=== PATIENT | male | born 1940 | race Caucasian/White ===

== ENCOUNTER → 2017-10-11 | Outpatient (CLI) | payer MEDICARE, BC ==
[~2017-10-11] MED LIST: ASPI325T33 PO; DIGO0.12 PO; GABA400C5 PO; PROP1CAP32 PO
--- NOTE | 2017-10-11 10:33 | RADRPT ---
EXAM DATE/TIME: 10/11/2017 10:00 [place] COMPARISON: No previous studies available for comparison. INDICATIONS : Pre op. Evaluate for pneumonia, pneumothorax, or communicable diseases. MEDICAL HISTORY : None. SURGICAL HISTORY : None. ENCOUNTER: Initial ACUITY: 1 day PAIN SCORE: 0/10 LOCATION: Bilateral chest FINDINGS: The heart is normal in size. The mediastinal contours are within normal limits. The lungs are clear. No pneumothorax is seen. There is been previous plating of multiple left-sided rib fractures. CONCLUSION: 1. Post surgical changes in the left ribs. No acute abnormality. Dawit Persaud MD on October 11, 2017 at 10:31 Board Certified Radiologist. This report was verified electronically.
[2017-10-11 12:46] LABS: AUTOMATED NEUTROPHIL # 6.9 TH/MM3 (1.8-7.7); BASOPHIL # 0.1 TH/MM3 (0-0.2); BASOPHIL % 0.6 % (0.0-2.0); EOSINOPHIL # 0.2 TH/MM3 (0-0.4); EOSINOPHIL % 1.9 % (0.0-4.0); HEMATOCRIT 49.2 % (39.0-51.0); HEMOGLOBIN 16.5 GM/DL (13.0-17.0); LYMPH % 24.7 % (9.0-44.0); LYMPHOCYTE # 2.6 TH/MM3 (1.0-4.8); MEAN CELL VOLUME 90.9 FL (80.0-100.0); MEAN CORPUSCULAR HEMOGLOBIN 30.5 PG (27.0-34.0); MEAN CORPUSCULAR HGB CONC 33.6 % (32.0-36.0); MONO % 7.2 % (0.0-8.0); MONOCYTE # 0.8 TH/MM3 (0-0.9); NEUT % 65.6 % (16.0-70.0); PLATELET COUNT 255 TH/MM3 (150-450); RED BLOOD COUNT 5.42 MIL/MM3 (4.50-5.90); RED CELL DISTRIBUTION WIDTH 15.3 % (11.6-17.2); WHITE BLOOD COUNT 10.5 TH/MM3 (4.0-11.0)
[2017-10-11 12:59] LABS: BACTERIA, URINE MANY /hpf; BILIRUBIN, URINE NEG (NEG); BLOOD, URINE TRACE (NEG); GLUCOSE,URINE NEG (NEG); KETONE, URINE NEG (NEG); MUCUS URINE FEW /lpf (OCC); NITRITE,URINE POS (NEG); PH, URINE 5.5 (5.0-8.5); URINE COLOR YELLOW (YELLW/STRAW); URINE LEUKOCYTE ESTERASE LARGE (NEG); WHITE BLOOD CELL CLUMPS FEW
[2017-10-11 13:01] LABS: PROTHROMBIN TIME - PATIENT 10.4 SEC (9.8-11.6)
[2017-10-11 13:09] LABS: ALBUMIN 3.4 GM/DL (3.4-5.0); ALT (GPT) 19 U/L (12-78); AST (GOT) 16 U/L (15-37); BICARBONATE 36.2 MEQ/L (21.0-32.0); BLOOD UREA NITROGEN 23 MG/DL (7-18); CALCIUM 9.3 MG/DL (8.5-10.1); CHLORIDE 98 MEQ/L (98-107); CREATININE 1.45 MG/DL (0.60-1.30); GLOMERULAR FILTRATION RATE 47 ML/MIN (>89); GLUCOSE,FASTING 59 MG/DL (74-99); SODIUM (NA) 138 MEQ/L (136-145)
[2017-10-11 13:11] LABS: ALKALINE PHOSPHATASE 108 U/L (45-117); TOTAL BILIRUBIN ADULT 0.4 MG/DL (0.2-1.0); TOTAL PROTEIN 8.4 GM/DL (6.4-8.2)
--- NOTE | 2017-10-11 19:39 | EKG ---
Date Performed: 10/11/2017 Time Performed: 08:53:58 PTAGE: 77 years EKG: ATRIAL FIBRILLATION WITH SLOW VENTRICULAR RESPONSE RIGHT BUNDLE BRANCH BLOCK LEFT POSTERIOR FASCICULAR BLOCK ABNORMAL ECG NO PREVIOUS TRACING DOCTOR: Sasha Maldonado Interpretating Date/Time 10/11/2017 19:38:14
== END ==
LOC: CPRE 09:05
PROVIDERS: ATTEND Colon & Rectal Surgery
DX: Z01.810 Encounter for preprocedural cardiovascular examination (principal); Z01.812 Encounter for preprocedural laboratory examination; Z01.818 Encounter for other preprocedural examination; K94.09 Other complications of colostomy; R94.31 Abnormal electrocardiogram [ECG] [EKG]; B96.20 Unspecified Escherichia coli [E. coli] as the cause of diseases classified elsewhere; Z79.01 Long term (current) use of anticoagulants
CPT/HCPCS: 36415; 71046; 80053; 81001; 85025; 85610; 85730; 87077; 87086; 87186; 93005

== ENCOUNTER 2017-10-18 11:36 | Inpatient (IN) | payer MEDICARE, BC ==
[~2017-10-18] VITALS: Ht 172.7 cm; Wt 77.0 kg
[2017-10-18] MEDS ORDERED: SODIUM CHLORID 0.9% 500 ML IV PRN (12:00)
[2017-10-18] MEDS ORDERED: CHLORHEXIDINE GLUCONATE 2 % 1 PACK (2 CLOTHS) TOPICAL PRN (12:00)
[2017-10-18] MEDS ORDERED: METOPROLOL TARTRATE 25 MG TAB PO PRN (12:00)
[2017-10-18] MEDS ORDERED: LACTATED RINGER'S 1000 ML INJ 4,000 ML IV ONE (12:00)
[2017-10-18] MEDS ORDERED: LACTATED RINGER'S 1000 ML IV PRN (12:00)
[2017-10-18] MEDS ORDERED: INSULIN HUMAN REGULAR 1,000 UNITS/10 ML VIAL SQ PRN (12:00)
[2017-10-18] MEDS ORDERED: ROCURONIUM INJ 50 MG/5 ML SYRINGE IV PUSH ONE (12:00)
[2017-10-18] MEDS ORDERED: ONDANSETRON HCL 4 MG/2 ML VIAL IV ONE (12:00)
[2017-10-18] MEDS ORDERED: PHENYLEPH/NS 1000 MCG/10 ML SYR IV ONE (12:00)
[2017-10-18] MEDS ORDERED: PHENYLEPHRINE HCL 10 MG/ML VIAL IV ONE (12:00)
[2017-10-18] MEDS ORDERED: ALVIMOPAN 12 MG CAPSULE - On Call PO SCH (12:00)
[2017-10-18] MEDS ORDERED: DEXAMETHASONE SOD PHOS 4 MG/ML VIAL IV ONE (12:00)
[2017-10-18] MEDS ORDERED: ePHEDrine/NS 25 MG/5 ML SYRINGE IV ONE (12:00)
[2017-10-18] MEDS ORDERED: PROPOFOL 200 MG/20 ML AMP IV ONE (12:00)
[2017-10-18] MEDS ORDERED: POVIDONE IODINE 5% (ANTISEPSIS KIT) 4 APPLICATIONS EACH NARE PRN (12:00)
[2017-10-18] MEDS ORDERED: NORMOSOL R INJ 1,000 ML IV ONE (12:00)
[2017-10-18] MEDS ORDERED: LIDOCAINE HCL 1% PF 5 ML SYRINGE OTHER ONE (12:00)
[2017-10-18] MEDS ORDERED: METRONIDAZOLE 500 MG/100 ML ISONTONIC SOLN IV SCH (13:00)
[2017-10-18] MEDS ORDERED: ceFAZolin 1,000 MG/NS 100 ML IV SCH ×2 (13:00)
--- NOTE | 2017-10-18 14:48 | PD.OP ---
Operative Report Date of Surgery: Oct 18, 2017 Preoperative Diagnosis: History of colon polyps with colovesical fistula Postoperative Diagnosis: Same Procedure: Cystoscopy with bilateral ureteral catheters Anesthesia: ROSALIA Surgeon: Alberto Archibald Dental Floss Packer(s): None Resident Surgeon: None Operation and Findings: 77-year-old male admitted to undergo colostomy by . Request was made for bilateral ureteral catheter placement. The patient was brought to the operating room and placed in the dorsal lithotomy position, he received preprocedure antibiotics and general endotracheal tube anesthesia was administered. He was prepped and draped in usual sterile fashion. A 22 Pakistani cystoscope was inserted in the bladder berumen cystoscopy showed some evidence of bullous edema. The left ureteral orifice was identified and a 5 Pakistani catheter was inserted in the left ureteral orifice without difficulty. This was then again repeated on the right side without difficulty. A Rubin catheter was inserted and then the catheters were attached the Rubin. He tolerated the procedure well. Alberto Archibald DO Oct 18, 2017 14:48
[2017-10-18] MEDS ORDERED: SUGAMMADEX SODIUM 200 MG/2 ML VIAL IV PUSH ONE (16:11)
[2017-10-18] MEDS ORDERED: MIDAZOLAM HCL 2 MG/2 ML VIAL ONE (16:20)
[2017-10-18] MEDS ORDERED: *morphine SULFATE 10 MG/ML PERIprocedure ONLY ONE ×2 (17:19→17:34)
[2017-10-18] MEDS ORDERED: METOPROLOL TARTRATE 5 MG/5 ML VIAL ONE (17:24)
[2017-10-18] MEDS ORDERED: MORPHINE SULFATE 30 MG/30 ML PCA IV SCH (17:30)
[2017-10-18] MEDS ORDERED: ZOLPIDEM TARTRATE 5 MG TAB PO PRN (17:30)
[2017-10-18] MEDS ORDERED: ENALAPRILAT 1.25 MG/ML VIAL IV PUSH PRN (17:30)
[2017-10-18] MEDS ORDERED: ACETAMINOPHEN/HYDROcodone 325 MG/5 MG TAB PO PRN ×2 (17:30)
[2017-10-18] MEDS ORDERED: KETOROLAC TROMETHAMINE 30 MG/ML (IVP) VIAL IVP PRN (17:30)
[2017-10-18] MEDS ORDERED: SODIUM CHLORIDE 0.9% FLUSH 10 ML FLUSH IV FLUSH PRN (17:30)
[2017-10-18] MEDS ORDERED: NALOXONE HCL 0.4 MG/ML AMP IV PUSH PRN (17:30)
[2017-10-18] MEDS ORDERED: POTASSIUM CHLOR 20 MEQ PREMIX 100 ML IV PRN (17:30)
[2017-10-18] MEDS ORDERED: Post-op Orders (for Pharmacy) XX ONE (17:30)
[2017-10-18] MEDS ORDERED: ONDANSETRON HCL 4 MG/2 ML VIAL IV PUSH PRN (17:30)
[2017-10-18] MEDS ORDERED: POTASSIUM CHLOR 40 MEQ PREMIX 100 ML IV PRN (17:30)
[2017-10-18] MEDS ORDERED: BENZOCAINE 6 MG/MENTHOL 10 MG LOZENGE BUCCAL PRN (17:30)
[2017-10-18 18:29] LABS: AUTOMATED NEUTROPHIL # 22.3 TH/MM3 (1.8-7.7); BASOPHIL # 0.1 TH/MM3 (0-0.2); BASOPHIL % 0.2 % (0.0-2.0); EOSINOPHIL % 0.2 % (0.0-4.0); HEMATOCRIT 48.3 % (39.0-51.0); HEMOGLOBIN 16.4 GM/DL (13.0-17.0); LYMPH % 9.9 % (9.0-44.0); LYMPHOCYTE # 2.6 TH/MM3 (1.0-4.8); MEAN CELL VOLUME 90.8 FL (80.0-100.0); MEAN CORPUSCULAR HEMOGLOBIN 30.8 PG (27.0-34.0); MEAN CORPUSCULAR HGB CONC 33.9 % (32.0-36.0); MEAN PLATELET VOLUME 8.3 FL (7.0-11.0); MONO % 5.2 % (0.0-8.0); MONOCYTE # 1.4 TH/MM3 (0-0.9); NEUT % 84.5 % (16.0-70.0); PLATELET COUNT 292 TH/MM3 (150-450); RED BLOOD COUNT 5.32 MIL/MM3 (4.50-5.90); RED CELL DISTRIBUTION WIDTH 14.8 % (11.6-17.2); WHITE BLOOD COUNT 26.4 TH/MM3 (4.0-11.0)
[2017-10-18 18:35] LABS: BICARBONATE 25.9 MEQ/L (21.0-32.0); CALCIUM 8.2 MG/DL (8.5-10.1); CREATININE 1.76 MG/DL (0.60-1.30)
[2017-10-18 18:52] LABS: DIGOXIN 1.5 NG/ML (0.8-2.0)
--- NOTE | 2017-10-18 19:29 | MP ---
cc: David Estrada MD DATE OF OPERATION: 10/18/2017 DATE OF PROCEDURE: 10/18/2017 PREOPERATIVE DIAGNOSIS: Colostomy with Jesus pouch. POSTOPERATIVE DIAGNOSIS: Colostomy with Jesus pouch. PROCEDURE PERFORMED: 1. Takedown colostomy. 2. Left colectomy and low anterior resection with anastomosis. 3. Diverting loop ileostomy. 4. Takedown of splenic flexure. 5. Omental flap. 6. Bilateral ureteral catheter placement, Dr. Alberto Archibald. SURGEON: David Estrada MD MANAGER LANGUAGE: Genaro Bruner MD ANESTHESIA: General endotracheal. ESTIMATED BLOOD LOSS: 400 mL. OPERATING TIME: 2 hours and 35 minutes. OPERATIVE FINDINGS: This patient had a colectomy for a colovesical fistula in [place] laparoscopically about 8 or 9 months ago. After that surgery, he had an anastomotic leak and underwent laparotomy and Jesus pouch and colostomy formation. He then developed a subcutaneous wound infection and had a wound VAC in place for about 6 weeks. He had a long postoperative recovery and said that it took about 6 months to get over the surgery. He is a very patient and wanted closure of his colostomy. At surgery, exploration of the abdominal cavity revealed mild diffuse abdominal adhesions between the loops of the small bowel, which were easily mobilized, as well as adhesions above the liver which was palpably normal as was his stomach. There was a Jesus pouch present. The inferior mesenteric and superior hemorrhoidal vessels were left intact previously, but were divided by us. A colorectal anastomosis was done above the cul-de-sac; however, because of the moderate difficulty of the dissection, a diverting loop ileostomy was done. The remainder of the abdominal exploration was within normal limits. OPERATIVE TECHNIQUE: The patient was placed on the table in the supine position, after adequate general endotracheal anesthesia. The legs were placed in the perineal lithotomy position and the abdomen and perineum were prepped and draped in the usual manner. Previously, the stoma was closed with running 3-0 Vicryl suture so there was no stool leakage after abdominal prep. After prepping and draping in the usual manner, a transverse infraumbilical skin incision was made and carried down through the subcutaneous tissue and the rectus muscles, and the peritoneal cavity was entered with the above mentioned findings. The omental adhesions that were stuck to the left colon and the colostomy were taken down and the adhesions to the abdominal wall were taken down as well. This was all done with electrocautery. The midline scar from his previous wound infection was densely adherent to the underlying omentum. This was mobilized as well. The omentum was mobilize up out of the pelvis as well and it was stuck to the mesentery of the Jesus pouch. The cecum was mobilized up out of the pelvis in order to facilitate moving the bowels out of the abdominal cavity for the surgery. Our attention was turned to the descending colon, it was mobilized until we got to the area of the colostomy and then the colostomy was taken down with a vertical elliptical incision around the colostomy site, taken down through the subcutaneous tissue and when it was detached from the rectus muscle, there was small paracolostomy hernia present laterally. Once this colostomy was taken down, the remainder of the descending colon was mobilized up and including the splenic flexure, fully mobilizing the splenic flexure and mobilizing the omentum from the transverse colon, entering the lesser sac. Once this was done, this left us with a long omental flap that was used at the end. The ascending branch of the left colic vessels were clamped, cut and ligated and the dissection was taken up to the marginal vessels in the middle colic, which were left intact. We then palpated the inferior mesenteric vein and the inferior mesenteric artery and they were doubly clamped, cut and doubly ligated with 0 Vicryl ligatures and then the mesocolon of the rectum was mobilized posteriorly and the rectum was mobilized posteriorly in the retro rectal space. This was done down to the pelvic floor and then laterally. The pelvic peritoneum was incised bilaterally. The previously placed ureteral cath facilitated identification of the ureters. The anterior cul-de-sac was not entered but the upper portion of the rectum was stuck to the posterior wall of the bladder and this was dissected free until we got to the cul-de-sac. Again, the cul-de-sac was not entered posterior to the prostate plane. A point in the upper rectum was chosen for division and the mesorectum was clamped, cut and ligated and the rectum was divided after placing a pursestring stapling device. Next, the previously mobilized colon and colostomy site was measured for length and the remainder of the descending colon mesentery was clamped, cut and ligated and then the bowel was cleared of the mesocolon. Another pursestring stapling device was used in the proximal bowel and the bowel was divided and then the anvil of the Ethicon 29 EEA instrument was placed in the proximal bowel and the pursestring was tied. Dr. Bruner then went below and placed the EEA instrument transanally which was accomplished fairly easily, although there was some fibrosis anteriorly just above the prostate from his previous abscess and dissections. Nevertheless, the distal pursestring was tied and the instrument was connected, closed and fired, creating the circular anastomosis. Dr. Bruner then did proctosigmoidoscopy examination, inspecting the anastomosis and insufflating air in the rectum and the pelvis was filled with saline solution and no air leaks were identified. The anastomosis was excellent-appearing. There was no ischemia of the anastomosis and there was no tension on the anastomosis. Because the dissection was somewhat difficulty and the blood loss was moderate, we elected to do a diverting loop ileostomy and a point in the ileum was chosen and the mesentery was cleared for about 2 cm. Next, hemostasis was maintained throughout the abdomen with electrocautery and a ligature and a drain was placed through the left lower quadrant stab wound and brought down into the pelvis, posterior to the rectal anastomosis. The abdominal cavity was irrigated thoroughly with at least 3 liters of saline solution, aspirated dry and the bowels were replaced in the abdominal cavity in an green ware caster manner. We then placed the omentum down the left colic gutter and into the pelvis over the anastomosis. A stoma site was made in the right upper quadrant in the lateral aspect of the rectus muscle and the terminal ileum was brought out through that stoma site. The distal limb of the loop ileostomy was closed with a TX30 blue staple height stapler and the ileostomy was matured with interrupted 3-0 Vicryl sutures and a 57-mm appliance was placed on the ileostomy. This was done after closing the abdominal wound. The abdominal wound was closed in layers, first closing the colostomy site, closing the posterior rectus sheath with a single stranded #1 PDS and the anterior rectus sheath with a single stranded #1 PDS. Next, the transverse incision was closed in layers using a double stranded #1 PDS for the posterior rectus sheath incorporating closure of a small umbilical hernia with this. That layer was irrigated with a liter of saline solution, aspirated dry, and then the anterior sheath was closed with a double stranded #1 PDS as well. Subcutaneous tissue was irrigated thoroughly with another 2 liters of saline solution, aspirated dry and then the skin was closed with skin nelida, closing the previous colostomy site and the wound site. Again, the ileostomy was matured as described above and dressings were applied. Sponge, needle and instruments counts were reported as correct. Estimated blood loss was 400 mL. Operating time was 2 hours and 35 minutes. The patient tolerated the procedure well and left the operating room in good condition. MD JONI Turner/AWAIS , 05:41 PM , 07:27 PM
[2017-10-18 19:40] VITALS: BP 141/82; PULSE 101; PULSE 87; RESP 13; TEMP 98; O2SAT 97
[2017-10-18 20:00] VITALS: PULSE 86
[2017-10-18] MEDS: FUROSEMIDE 20 MG/2 ML VIAL IV PUSH SCH (20:10)
[2017-10-18] MEDS: METOCLOPRAMIDE HCL 10 MG/2 ML VIAL IVS SCH (20:10)
[2017-10-18] MEDS: GABAPENTIN 400 MG CAP PO SCH (20:10)
[2017-10-18] MEDS: ceFAZolin 2 GM PREMIX 50 ML IV SCH (20:11)
[2017-10-18] MEDS: SODIUM CHLORIDE 0.9% FLUSH 10 ML FLUSH IV FLUSH SCH (20:11)
[2017-10-18] MEDS: D5-LR + KCL 20 MEQ INJ 1,000 ML IV SCH ×2 (20:12→22:13)
[2017-10-18 21:00] VITALS: PULSE 90
[2017-10-18] MEDS ORDERED: PROPAFENONE 225 MG PO SCH ×2 (21:00)
[2017-10-18] MEDS: PCA - TOTAL MG MORPHINE DELIVERED PER SHIFT SCH (21:50)
[2017-10-18 22:00] VITALS: PULSE 84
[2017-10-18] MEDS: metroNIDAZOLE 500 MG INJ 100 ML IV SCH (22:11)
[2017-10-18 23:00] VITALS: PULSE 88
[2017-10-18 23:10] VITALS: BP 136/76; PULSE 82; RESP 15; TEMP 98; O2SAT 96
[2017-10-19] VITALS (15 sets, daily range): BP systolic 129–143; BP diastolic 62–84; PULSE 69–85; RESP 14–18; TEMP 97.4–99; O2SAT 95–100
[2017-10-19] MEDS: METOCLOPRAMIDE HCL 10 MG/2 ML VIAL IVS SCH ×4 (00:47→18:32)
[2017-10-19] MEDS: D5-LR + KCL 20 MEQ INJ 1,000 ML IV SCH ×4 (03:58→21:40)
[2017-10-19] MEDS: ceFAZolin 2 GM PREMIX 50 ML IV SCH ×3 (04:00→20:35)
[2017-10-19] MEDS: PCA - TOTAL MG MORPHINE DELIVERED PER SHIFT SCH ×2 (05:03→14:00)
[2017-10-19] MEDS: metroNIDAZOLE 500 MG INJ 100 ML IV SCH ×3 (05:11→22:00)
[2017-10-19 06:06] LABS: AUTOMATED NEUTROPHIL # 19.6 TH/MM3 (1.8-7.7); BASOPHIL % 0.2 % (0.0-2.0); HEMOGLOBIN 14.8 GM/DL (13.0-17.0); LYMPH % 5.5 % (9.0-44.0); LYMPHOCYTE # 1.2 TH/MM3 (1.0-4.8); MEAN CELL VOLUME 91.6 FL (80.0-100.0); MEAN CORPUSCULAR HEMOGLOBIN 30.7 PG (27.0-34.0); MEAN CORPUSCULAR HGB CONC 33.5 % (32.0-36.0); MEAN PLATELET VOLUME 8.2 FL (7.0-11.0); MONO % 6.5 % (0.0-8.0); MONOCYTE # 1.5 TH/MM3 (0-0.9); NEUT % 87.8 % (16.0-70.0); PLATELET COUNT 232 TH/MM3 (150-450); RED BLOOD COUNT 4.81 MIL/MM3 (4.50-5.90); RED CELL DISTRIBUTION WIDTH 14.8 % (11.6-17.2); WHITE BLOOD COUNT 22.3 TH/MM3 (4.0-11.0)
[2017-10-19 06:30] LABS: BICARBONATE 27.3 MEQ/L (21.0-32.0); CALCIUM 8.2 MG/DL (8.5-10.1); CREATININE 2.61 MG/DL (0.60-1.30)
--- NOTE | 2017-10-19 07:36 | HHI.PR ---
Subjective Remarks Awake,alert,oriented. No N or V. Ileostomy working. Objective Vital Signs Date Time Temp Pulse Resp B/P (MAP) Pulse Ox O2 Delivery O2 Flow Rate FiO2 10/19/17 06:00 72 10/19/17 05:03 18 10/19/17 05:00 72 10/19/17 04:06 96 Nasal Cannula 2.00 10/19/17 04:00 70 10/19/17 03:50 97.6 82 16 139/84 (102) 95 10/19/17 03:50 95 Nasal Cannula 2.00 10/19/17 03:00 70 10/19/17 02:00 72 10/19/17 01:00 78 10/19/17 00:00 85 10/18/17 23:10 96 Nasal Cannula 2.00 10/18/17 23:10 98.0 82 15 136/76 (96) 96 10/18/17 23:00 88 10/18/17 22:00 84 10/18/17 21:50 13 10/18/17 21:00 90 10/18/17 20:16 15 10/18/17 20:00 86 10/18/17 19:45 Nasal Cannula 2.00 10/18/17 19:40 97 Nasal Cannula 3.00 10/18/17 19:40 101 10/18/17 19:40 98.0 87 13 141/82 (101) 97 10/18/17 19:15 98.2 85 16 120/65 (83) 96 Nasal Cannula 3 10/18/17 19:00 80 16 121/69 (86) 95 Nasal Cannula 3 10/18/17 18:45 79 15 118/67 (84) 95 Nasal Cannula 3 10/18/17 18:30 78 15 114/66 (82) 96 Nasal Cannula 3 10/18/17 18:15 80 15 130/65 (86) 95 Nasal Cannula 3 10/18/17 18:00 89 15 120/62 (81) 94 Nasal Cannula 3 10/18/17 17:45 95 15 118/58 (78) 94 Nasal Cannula 3 10/18/17 17:39 15 10/18/17 17:30 115 15 120/62 (81) 99 Nasal Cannula 4 10/18/17 17:24 15 10/18/17 17:15 122 15 132/60 (84) 98 Nasal Cannula 4 10/18/17 17:00 98.6 87 17 131/58 (82) 97 Nasal Cannula 4 10/18/17 12:00 98.9 87 18 157/77 (103) 96 I/O 10/18/17 10/18/17 10/18/17 10/19/17 10/19/17 10/19/17 07:00 15:00 23:00 07:00 15:00 23:00 Intake Total 4950 ml 1800 ml Output Total 860 ml 740 ml Balance 4090 ml 1060 ml Intake Oral 150 ml IV Total 750 ml 1650 ml Other 4200 ml Output Urine Total 350 ml 500 ml Stool Total 50 ml Drainage Total 110 ml 190 ml Estimated Blood Loss 400 ml Result Diagram: 10/19/17 0430 10/19/17 0430 Objective Remarks VS-S Abd: flat,soft.Stoma pink I&Os-improving Urine output Labs-Creat 2.6 Assessment and Plan Assessment and Plan Stable POD#1. Renal insufficiency post op. Non oliguric at this point Plan: consult cardiology for advice regarding D/C anticoagulation. Decrease IVs. CLD. Ambulate.Start Heparin SQ today. David Estrada MD Oct 19, 2017 07:36
[2017-10-19] MEDS: PANTOPRAZOLE SODIUM 40 MG VIAL IVP SCH (09:10)
[2017-10-19] MEDS: FUROSEMIDE 20 MG/2 ML VIAL IV PUSH SCH ×2 (09:10→20:36)
[2017-10-19] MEDS: GABAPENTIN 400 MG CAP PO SCH ×2 (09:10→20:35)
[2017-10-19] MEDS: ALVIMOPAN 12 MG CAPSULE - Post-op dosing PO SCH ×2 (09:10→20:36)
[2017-10-19] MEDS: DIGOXIN 0.125 MG TAB PO SCH (09:10)
[2017-10-19] MEDS: SODIUM CHLORIDE 0.9% FLUSH 10 ML FLUSH IV FLUSH SCH ×2 (09:11→21:00)
--- NOTE | 2017-10-19 14:09 | PD.WCN.NOT ---
Wound Consult Description: Consult for NEW OSTOMY TEACHING of right upper quadrant temporary ileostomy per Dr Estrada Communicated with: Patient Recommendation: Continue to empty pouch and change appliance as needed using cut to fit appliances. Additional Information: Patient seen on for ostomy assessment, teaching, and to answer any questions the patient may have. Ostomy Type: Ileostomy Surgeon: David Estrada MD Date of Surgery: Oct 18, 2017 Complete: Education materials (Left at bedside after showing the contents to the patient) Educated patient on: Chewing food well Emptying pouch more often than he is used to (patient had a colostomy) Changing appliance as needed Staying hydrated Using cut to fit appliances as he is used to Paying attention to Medications and the output of stoma Additional information Stoma is located on the right upper quadrant of the abdomen. Ileostomy is red, moist, moderately protruding, round, functioning with soft brown/green effluent noted in pouch that was not emptied at this time. Patient was receptive to new information given regarding medications, hydration, chewing foods, and taking care of his stoma like he was used to doing except a little more frequently. Jen Huerta [facility] Oct 19, 2017 14:09
[2017-10-19] MEDS: HEPARIN SODIUM - SQ 10,000 UNITS/ML VIAL SQ SCH (18:32)
--- NOTE | 2017-10-19 19:22 | MB ---
cc: Sravan Stringer MD DATE OF CONSULT: Bradley is a very pleasant 77-year-old gentleman with a history atrial fibrillation, previously on Coumadin. He stopped taking his Coumadin. He has an ileostomy with Dr. Estrada. He is currently postop, resting comfortably in bed, in no acute distress. He otherwise denies any fevers, chills, cough, GI or bleeding, PND, orthopnea, syncope or dizziness. He underwent insertion of bilateral ureteral catheters, descending colectomy, closure of colostomy, ileostomy on 10/18/2017. PAST MEDICAL HISTORY: As per his present illness. He had an EKG on 10/11, which showed AFib at a rate of 59 beats/minute, right bundle branch block, right axis deviation, left anterior fascicular block. MEDICATIONS: Heparin 5000 subcu q.12 hours, 12 mg b.i.d., pantoprazole 40 daily, digoxin 0.125 daily, metronidazole IV q.8 hours, cefazolin, Lasix 20 IV q.12 hours, gabapentin 400 mg b.i.d., potassium supplementation. ALLERGIES: CODEINE. PHYSICAL EXAMINATION: Blood pressure 139/73, pulse 70, temperature 97.6, respiratory rate 14, sat is 97% on 2 L. GENERAL: He is alert and oriented x 3, in no acute distress. NECK: Supple, no JVD, no bruits. CARDIOVASCULAR: S1, S2. No murmurs, rubs or gallops. LUNGS: Clear to auscultation bilaterally. ABDOMEN: Soft, nontender, nondistended with positive bowel sounds. EXTREMITIES: No extremity edema. LABORATORIES: White count 22.3, hemoglobin 14.8, hematocrit 44.0, platelet count 232. Sodium 143, potassium 4.9, chloride 106, bicarb 27.3, BUN 25, creatinine 2.61. Digoxin is 1.5. Chest x-ray, 10/11/2017, post surgical changes in the left rib. FINAL DIAGNOSES: 1. Chronic atrial fibrillation. 2. Status post colectomy, ileostomy, bilateral ureteral shunt placement. DISCUSSION: The patient's CHADS-VASc score is 2 because his age is greater than 75. Therefore, I have explained to him that I recommend Coumadin and/or novel oral anticoagulant agent. The patient refuses Coumadin. He is undecided about novel oral anticoagulant oral agent. I did explain to him that these medications cannot be reversed should there be an acute bleed, which potentially could be life threatening. IN the meantime, I think it is reasonable to put him on baby aspirin 81 mg a day. He is currently being treated with DVT prophylaxis, heparin. His rate is controlled and he is asymptomatic. MD ELGIN Sandoval/SB , 12:55 PM , 07:21 PM
[2017-10-19] MEDS ORDERED: ALVIMOPAN 12 MG CAPSULE PO SCH (21:00)
[2017-10-20] MEDS: METOCLOPRAMIDE HCL 10 MG/2 ML VIAL IVS SCH ×5 (00:10→22:46)
[2017-10-20 01:07] VITALS: BP 129/63; PULSE 18; PULSE 78; RESP 18; TEMP 96.8; O2SAT 94
[2017-10-20] MEDS: HEPARIN SODIUM - SQ 10,000 UNITS/ML VIAL SQ SCH ×2 (05:17→16:45)
[2017-10-20] MEDS: D5-LR + KCL 20 MEQ INJ 1,000 ML IV SCH ×3 (05:24→20:21)
[2017-10-20] MEDS: metroNIDAZOLE 500 MG INJ 100 ML IV SCH ×3 (05:26→22:45)
[2017-10-20] MEDS: ceFAZolin 2 GM PREMIX 50 ML IV SCH ×3 (05:26→20:20)
[2017-10-20 08:00] VITALS: BP 107/58; PULSE 82; RESP 17; TEMP 96.7; O2SAT 93
[2017-10-20] MEDS: SODIUM CHLORIDE 0.9% FLUSH 10 ML FLUSH IV FLUSH SCH ×2 (09:00→20:21)
[2017-10-20 09:01] LABS: AUTOMATED NEUTROPHIL # 10.6 TH/MM3 (1.8-7.7); BASOPHIL # 0.1 TH/MM3 (0-0.2); BASOPHIL % 0.4 % (0.0-2.0); EOSINOPHIL # 0.1 TH/MM3 (0-0.4); EOSINOPHIL % 0.9 % (0.0-4.0); HEMATOCRIT 34.8 % (39.0-51.0); HEMOGLOBIN 11.7 GM/DL (13.0-17.0); LYMPH % 11.1 % (9.0-44.0); LYMPHOCYTE # 1.4 TH/MM3 (1.0-4.8); MEAN CELL VOLUME 90.8 FL (80.0-100.0); MEAN CORPUSCULAR HEMOGLOBIN 30.5 PG (27.0-34.0); MEAN CORPUSCULAR HGB CONC 33.6 % (32.0-36.0); MEAN PLATELET VOLUME 8.1 FL (7.0-11.0); MONO % 5.5 % (0.0-8.0); MONOCYTE # 0.7 TH/MM3 (0-0.9); NEUT % 82.1 % (16.0-70.0); PLATELET COUNT 164 TH/MM3 (150-450); RED BLOOD COUNT 3.83 MIL/MM3 (4.50-5.90); RED CELL DISTRIBUTION WIDTH 15.1 % (11.6-17.2); WHITE BLOOD COUNT 12.9 TH/MM3 (4.0-11.0)
[2017-10-20] MEDS: GABAPENTIN 400 MG CAP PO SCH ×2 (09:29→20:21)
[2017-10-20] MEDS: PANTOPRAZOLE SODIUM 40 MG VIAL IVP SCH (09:30)
[2017-10-20] MEDS: FUROSEMIDE 20 MG/2 ML VIAL IV PUSH SCH ×2 (09:30→20:21)
[2017-10-20] MEDS: DIGOXIN 0.125 MG TAB PO SCH (09:31)
[2017-10-20] MEDS: ALVIMOPAN 12 MG CAPSULE - Post-op dosing PO SCH ×2 (09:31→20:21)
[2017-10-20 09:43] LABS: BICARBONATE 30.8 MEQ/L (21.0-32.0); CALCIUM 8.3 MG/DL (8.5-10.1); CREATININE 2.28 MG/DL (0.60-1.30)
[2017-10-20 12:00] VITALS: BP 120/58; PULSE 85; RESP 17; TEMP 97.1; O2SAT 93
[2017-10-20 16:00] VITALS: BP 142/69; PULSE 73; RESP 17; TEMP 96.4; O2SAT 93
--- NOTE | 2017-10-20 17:03 | PD.CARD.PN ---
Subjective Subjective Remarks alert in nad Objective Medications Current Medications Medications (Trade) Dose Ordered Sig/Felicity Route Start Time Stop Time Status Last Admin Lactated Ringer's 1,000 ml @ 30 mls/hr Q24H PRN IV 10/18/17 12:00 10/21/17 11:59 10/18/17 12:30 Sodium Chloride 500 ml @ 30 mls/hr [id number] PRN IV 10/18/17 12:00 10/21/17 11:59 (Lopressor) 25 mg DOG DAYCARE PROVIDER PRN PO 10/18/17 12:00 10/21/17 11:59 (Betadine 5% Antisepsis Kit) 1 applic DOG DAYCARE PROVIDER PRN EACH NARE 10/18/17 12:00 10/21/17 11:59 10/18/17 12:45 (Chlorhexidine 2% Cloth) 3 pack DOG DAYCARE PROVIDER PRN TOPICAL 10/18/17 12:00 10/21/17 11:59 10/18/17 12:00 (NovoLIN R INJ) See Protocol Table ... DOG DAYCARE PROVIDER PRN SQ 10/18/17 12:00 10/21/17 11:59 (Entereg) 12 mg BID PO 10/19/17 09:00 10/25/17 21:01 10/20/17 09:31 Potassium Cl/ Dextrose/Lact Ringer's 1,000 ml @ 125 mls/hr Q8H IV 10/18/17 19:00 10/20/17 05:24 (NS Flush) 2 ml UNSCH PRN IV FLUSH 10/18/17 17:30 (NS Flush) 2 ml BID IV FLUSH 10/18/17 21:00 10/19/17 21:00 Cefazolin Sodium/ Dextrose 50 ml @ 100 mls/hr Q8H IV 10/18/17 21:00 10/23/17 20:59 10/20/17 11:57 Metronidazole 100 ml @ 200 mls/hr Q8H IV 10/18/17 22:00 10/23/17 14:29 10/20/17 11:57 ([place] 5-325 Mg) 1 tab Q4H PRN PO 10/18/17 17:30 ([place] 5-325 Mg) 2 tab Q4H PRN PO 10/18/17 17:30 (Protonix Inj) 40 mg DAILY IVP 10/19/17 09:00 10/20/17 09:30 (Reglan Inj) 5 mg Q6HR IVS 10/18/17 18:00 10/20/17 16:45 (Zofran Inj) 4 mg Q6H PRN IV PUSH 10/18/17 17:30 (Vasotec Inj) 1.25 mg Q4H PRN IV PUSH 10/18/17 17:30 (Ambien) 5 mg HS PRN PO 10/18/17 17:30 (Chloraseptic Brigido) 1 lozenge UNSCH PRN BUCCAL 10/18/17 17:30 (Lasix Inj) 20 mg Q12HR IV PUSH 10/18/17 21:00 10/21/17 09:01 10/20/17 09:30 Potassium Chloride 100 ml @ 50 mls/hr UNSCH PRN IV 10/18/17 17:30 Potassium Chloride 100 ml @ 25 mls/hr UNSCH PRN IV 10/18/17 17:30 (Heparin Inj) 5,000 units Q12H SQ 10/19/17 16:15 10/20/17 16:45 (Lanoxin) 0.125 mg DAILY PO 10/19/17 09:00 10/20/17 09:31 (Neurontin) 400 mg BID PO 10/18/17 21:00 10/20/17 09:29 Patient Own Medication PT OWN MED: PROPAFEN... BID PO 10/18/17 21:00 Future Hold Vital Signs / I&O Vital Signs Date Time Temp Pulse Resp B/P (MAP) Pulse Ox O2 Delivery O2 Flow Rate FiO2 10/20/17 16:00 96.4 73 17 142/69 (93) 93 10/20/17 12:00 97.1 85 17 120/58 (78) 93 10/20/17 09:30 Nasal Cannula 2.00 10/20/17 08:00 96.7 82 17 107/58 (74) 93 10/20/17 01:07 96.8 78 18 129/63 (85) 94 10/19/17 23:00 98.7 71 14 129/62 (84) 95 10/19/17 23:00 95 Nasal Cannula 2.00 10/19/17 19:00 99.0 76 16 130/62 (84) 96 10/19/17 19:00 96 Nasal Cannula 2.00 I/O 10/19/17 10/19/17 10/19/17 10/20/17 10/20/17 10/20/17 07:00 15:00 23:00 07:00 15:00 23:00 Intake Total 1800 ml 480 ml 1000 ml Output Total 740 ml 1770 ml 1050 ml Balance 1060 ml -1290 ml -50 ml Intake Oral 150 ml 480 ml IV Total 1650 ml 1000 ml Output Urine Total 500 ml 1650 ml 1000 ml Stool Total 50 ml Drainage Total 190 ml 120 ml 50 ml Physical Exam GENERAL: SKIN: Warm and dry. HEAD: Normocephalic. EYES: No scleral icterus. No injection or drainage. NECK: Supple, trachea midline. No JVD or lymphadenopathy. CARDIOVASCULAR: Regular rate and rhythm without murmurs, gallops, or rubs. RESPIRATORY: Breath sounds equal bilaterally. No accessory muscle use. GASTROINTESTINAL: Abdomen soft, non-tender, nondistended. MUSCULOSKELETAL: No cyanosis, or edema. BACK: Nontender without obvious deformity. No CVA tenderness. Laboratory Laboratory Tests Test 10/20/17 07:27 White Blood Count 12.9 TH/MM3 Red Blood Count 3.83 MIL/MM3 Hemoglobin 11.7 GM/DL Hematocrit 34.8 % Mean Corpuscular Volume 90.8 FL Mean Corpuscular Hemoglobin 30.5 PG Mean Corpuscular Hemoglobin Concent 33.6 % Red Cell Distribution Width 15.1 % Platelet Count 164 TH/MM3 Mean Platelet Volume 8.1 FL Neutrophils (%) (Auto) 82.1 % Lymphocytes (%) (Auto) 11.1 % Monocytes (%) (Auto) 5.5 % Eosinophils (%) (Auto) 0.9 % Basophils (%) (Auto) 0.4 % Neutrophils # (Auto) 10.6 TH/MM3 Lymphocytes # (Auto) 1.4 TH/MM3 Monocytes # (Auto) 0.7 TH/MM3 Eosinophils # (Auto) 0.1 TH/MM3 Basophils # (Auto) 0.1 TH/MM3 CBC Comment DIFF FINAL Differential Comment Blood Urea Nitrogen 26 MG/DL Creatinine 2.28 MG/DL Random Glucose 99 MG/DL Calcium Level 8.3 MG/DL Sodium Level 141 MEQ/L Potassium Level 4.1 MEQ/L Chloride Level 102 MEQ/L Carbon Dioxide Level 30.8 MEQ/L Anion Gap 8 MEQ/L Estimat Glomerular Filtration Rate 28 ML/MIN Assessment and Plan Problem List: (1) Atrial fibrillation ICD Codes: I48.91 - Unspecified atrial fibrillation Assessment and Plan 1.) Atrial fibrillation - assymptomatic, rate controlled, [id number] score =2; he has agreed to take a noac, rec eliquis 2.5 mg bid if/when cleared by Dr Estrada, ow continue aspirin 81 mg qd, f/u with me in office after discharge, d/ w patient Sravan Stringer MD Oct 20, 2017 17:03
[2017-10-20 20:00] VITALS: BP 154/74; PULSE 73; RESP 18; TEMP 97.3; O2SAT 94
[2017-10-21] VITALS: BP 133/66; PULSE 85; PULSE 98; RESP 18; TEMP 97.8; O2SAT 93
[2017-10-21] MEDS: HEPARIN SODIUM - SQ 10,000 UNITS/ML VIAL SQ SCH ×2 (04:36→16:24)
[2017-10-21] MEDS: ceFAZolin 2 GM PREMIX 50 ML IV SCH ×3 (04:36→20:18)
[2017-10-21] MEDS: METOCLOPRAMIDE HCL 10 MG/2 ML VIAL IVS SCH ×4 (05:59→23:59)
[2017-10-21] MEDS: metroNIDAZOLE 500 MG INJ 100 ML IV SCH ×3 (05:59→20:18)
[2017-10-21 07:02] LABS: AUTOMATED NEUTROPHIL # 7.2 TH/MM3 (1.8-7.7); BASOPHIL % 0.4 % (0.0-2.0); EOSINOPHIL # 0.3 TH/MM3 (0-0.4); HEMATOCRIT 34.9 % (39.0-51.0); HEMOGLOBIN 12.1 GM/DL (13.0-17.0); LYMPH % 12.8 % (9.0-44.0); LYMPHOCYTE # 1.2 TH/MM3 (1.0-4.8); MEAN CELL VOLUME 90.3 FL (80.0-100.0); MEAN CORPUSCULAR HEMOGLOBIN 31.3 PG (27.0-34.0); MEAN CORPUSCULAR HGB CONC 34.7 % (32.0-36.0); MEAN PLATELET VOLUME 8.1 FL (7.0-11.0); MONO % 6.1 % (0.0-8.0); MONOCYTE # 0.6 TH/MM3 (0-0.9); NEUT % 77.7 % (16.0-70.0); PLATELET COUNT 168 TH/MM3 (150-450); RED BLOOD COUNT 3.86 MIL/MM3 (4.50-5.90); RED CELL DISTRIBUTION WIDTH 14.9 % (11.6-17.2); WHITE BLOOD COUNT 9.3 TH/MM3 (4.0-11.0)
[2017-10-21 07:24] LABS: BICARBONATE 37.7 MEQ/L (21.0-32.0); CALCIUM 8.4 MG/DL (8.5-10.1); CREATININE 1.99 MG/DL (0.60-1.30)
[2017-10-21 08:00] VITALS: BP 132/70; PULSE 85; RESP 17; TEMP 96.4; O2SAT 91
[2017-10-21] MEDS: SODIUM CHLORIDE 0.9% FLUSH 10 ML FLUSH IV FLUSH SCH ×2 (09:00→20:18)
[2017-10-21] MEDS: DIGOXIN 0.125 MG TAB PO SCH (09:13)
[2017-10-21] MEDS: FUROSEMIDE 20 MG/2 ML VIAL IV PUSH SCH (09:14)
[2017-10-21] MEDS: PANTOPRAZOLE SODIUM 40 MG VIAL IVP SCH (09:14)
[2017-10-21] MEDS: GABAPENTIN 400 MG CAP PO SCH ×2 (09:14→20:18)
[2017-10-21] MEDS: ALVIMOPAN 12 MG CAPSULE - Post-op dosing PO SCH ×2 (09:14→20:18)
[2017-10-21] MEDS: D5-LR + KCL 20 MEQ INJ 1,000 ML IV SCH (11:37)
[2017-10-21 12:00] VITALS: BP 135/71; PULSE 83; RESP 17; TEMP 97.5; O2SAT 95
--- NOTE | 2017-10-21 12:54 | PD.CARD.PN ---
Subjective Subjective Remarks alert in nad Objective Medications Current Medications Medications (Trade) Dose Ordered Sig/Felicity Route Start Time Stop Time Status Last Admin (Entereg) 12 mg BID PO 10/19/17 09:00 10/25/17 21:01 10/21/17 09:14 Potassium Cl/ Dextrose/Lact Ringer's 1,000 ml @ 83 mls/hr Q12H3M IV 10/18/17 19:00 10/20/17 20:21 (NS Flush) 2 ml UNSCH PRN IV FLUSH 10/18/17 17:30 (NS Flush) 2 ml BID IV FLUSH 10/18/17 21:00 10/20/17 20:21 Cefazolin Sodium/ Dextrose 50 ml @ 100 mls/hr Q8H IV 10/18/17 21:00 10/23/17 20:59 10/21/17 12:00 Metronidazole 100 ml @ 200 mls/hr Q8H IV 10/18/17 22:00 10/23/17 14:29 10/21/17 05:59 ([place] 5-325 Mg) 1 tab Q4H PRN PO 10/18/17 17:30 ([place] 5-325 Mg) 2 tab Q4H PRN PO 10/18/17 17:30 (Protonix Inj) 40 mg DAILY IVP 10/19/17 09:00 10/21/17 09:14 (Reglan Inj) 5 mg Q6HR IVS 10/18/17 18:00 10/21/17 11:59 (Zofran Inj) 4 mg Q6H PRN IV PUSH 10/18/17 17:30 (Vasotec Inj) 1.25 mg Q4H PRN IV PUSH 10/18/17 17:30 (Ambien) 5 mg HS PRN PO 10/18/17 17:30 (Chloraseptic Brigido) 1 lozenge UNSCH PRN BUCCAL 10/18/17 17:30 Potassium Chloride 100 ml @ 50 mls/hr UNSCH PRN IV 10/18/17 17:30 Potassium Chloride 100 ml @ 25 mls/hr UNSCH PRN IV 10/18/17 17:30 (Heparin Inj) 5,000 units Q12H SQ 10/19/17 16:15 10/21/17 04:36 (Lanoxin) 0.125 mg DAILY PO 10/19/17 09:00 10/21/17 09:13 (Neurontin) 400 mg BID PO 10/18/17 21:00 10/21/17 09:14 Patient Own Medication PT OWN MED: PROPAFEN... BID PO 10/18/17 21:00 Future Hold Vital Signs / I&O Vital Signs Date Time Temp Pulse Resp B/P (MAP) Pulse Ox O2 Delivery O2 Flow Rate FiO2 10/21/17 12:00 97.5 83 17 135/71 (92) 95 10/21/17 08:00 96.4 85 17 132/70 (90) 91 10/21/17 00:00 97.8 85 18 133/66 (88) 93 10/20/17 20:00 97.3 73 18 154/74 (100) 94 10/20/17 16:00 96.4 73 17 142/69 (93) 93 I/O 10/20/17 10/20/17 10/20/17 10/21/17 10/21/17 10/21/17 07:00 15:00 23:00 07:00 15:00 23:00 Intake Total 1000 ml 720 ml 1422 ml 510 ml Output Total 1050 ml 1310 ml 2030 ml Balance -50 ml 720 ml 112 ml -1520 ml Intake Oral 222 ml 360 ml IV Total 1000 ml 720 ml 1200 ml 150 ml Output Urine Total 1000 ml 1250 ml 1850 ml Stool Total 150 ml Drainage Total 50 ml 60 ml 30 ml # Bowel Movements 0 Physical Exam GENERAL: SKIN: Warm and dry. HEAD: Normocephalic. EYES: No scleral icterus. No injection or drainage. NECK: Supple, trachea midline. No JVD or lymphadenopathy. CARDIOVASCULAR: Regular rate and rhythm without murmurs, gallops, or rubs. RESPIRATORY: Breath sounds equal bilaterally. No accessory muscle use. GASTROINTESTINAL: Abdomen soft, non-tender, nondistended. MUSCULOSKELETAL: No cyanosis, or edema. BACK: Nontender without obvious deformity. No CVA tenderness. Laboratory Laboratory Tests Test 10/21/17 05:50 White Blood Count 9.3 TH/MM3 Red Blood Count 3.86 MIL/MM3 Hemoglobin 12.1 GM/DL Hematocrit 34.9 % Mean Corpuscular Volume 90.3 FL Mean Corpuscular Hemoglobin 31.3 PG Mean Corpuscular Hemoglobin Concent 34.7 % Red Cell Distribution Width 14.9 % Platelet Count 168 TH/MM3 Mean Platelet Volume 8.1 FL Neutrophils (%) (Auto) 77.7 % Lymphocytes (%) (Auto) 12.8 % Monocytes (%) (Auto) 6.1 % Eosinophils (%) (Auto) 3.0 % Basophils (%) (Auto) 0.4 % Neutrophils # (Auto) 7.2 TH/MM3 Lymphocytes # (Auto) 1.2 TH/MM3 Monocytes # (Auto) 0.6 TH/MM3 Eosinophils # (Auto) 0.3 TH/MM3 Basophils # (Auto) 0.0 TH/MM3 CBC Comment DIFF FINAL Differential Comment Blood Urea Nitrogen 22 MG/DL Creatinine 1.99 MG/DL Random Glucose 124 MG/DL Calcium Level 8.4 MG/DL Sodium Level 141 MEQ/L Potassium Level 3.8 MEQ/L Chloride Level 102 MEQ/L Carbon Dioxide Level 37.7 MEQ/L Anion Gap 1 MEQ/L Estimat Glomerular Filtration Rate 33 ML/MIN Assessment and Plan Problem List: (1) Atrial fibrillation ICD Codes: I48.91 - Unspecified atrial fibrillation Assessment and Plan 1.) Atrial fibrillation - assymptomatic, rate controlled, [id number] score =2; he has agreed to take a noac, rec eliquis 2.5 mg bid if/when cleared by Dr Estrada, ow continue aspirin 81 mg qd, f/u with me in office after discharge, d/ w patient Sravan Stringer MD Oct 21, 2017 12:53
[2017-10-21 16:00] VITALS: BP 137/73; PULSE 90; RESP 17; TEMP 97.7; O2SAT 95
[2017-10-21 20:00] VITALS: BP 149/77; PULSE 99; RESP 20; TEMP 96.6; O2SAT 91
[2017-10-22] VITALS: BP 139/70; PULSE 84; RESP 20; TEMP 97.7; O2SAT 95
[2017-10-22] MEDS: HEPARIN SODIUM - SQ 10,000 UNITS/ML VIAL SQ SCH (03:54)
[2017-10-22] MEDS: ceFAZolin 2 GM PREMIX 50 ML IV SCH (03:54)
[2017-10-22] MEDS: METOCLOPRAMIDE HCL 10 MG/2 ML VIAL IVS SCH (05:29)
[2017-10-22] MEDS: metroNIDAZOLE 500 MG INJ 100 ML IV SCH (05:29)
[2017-10-22 07:28] LABS: BICARBONATE 33.6 MEQ/L (21.0-32.0); CALCIUM 8.5 MG/DL (8.5-10.1); CREATININE 1.76 MG/DL (0.60-1.30)
[2017-10-22 08:00] VITALS: BP 127/70; PULSE 78; RESP 17; TEMP 96.9; O2SAT 97
[2017-10-22] MEDS: PANTOPRAZOLE SODIUM 40 MG VIAL IVP SCH (08:20)
[2017-10-22] MEDS: GABAPENTIN 400 MG CAP PO SCH (08:20)
[2017-10-22] MEDS: SODIUM CHLORIDE 0.9% FLUSH 10 ML FLUSH IV FLUSH SCH (08:20)
[2017-10-22] MEDS: DIGOXIN 0.125 MG TAB PO SCH (08:20)
[2017-10-22] MEDS: ALVIMOPAN 12 MG CAPSULE - Post-op dosing PO SCH (08:20)
[2017-10-22] MEDS: D5-LR + KCL 20 MEQ INJ 1,000 ML IV SCH ×2 (08:21)
[2017-10-22] MEDS ORDERED: APIX2.5T PO (09:24)
--- NOTE | 2017-10-22 09:26 | HHI.FF ---
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 Pt has had prior colostomy. Ileostomy is temporary I have seen patient Roberto Francois Jr Johnnie on 10/22/17. My clinical findings support the need for the requested home health care services because: Ltd mobility - disease progression Deconditioned w/ increased weakness Med compliance is questionable Limited ability to care for self Need for psychosocial assistance High risk of falls I certify that my clinical findings support that this patient is homebound because: Post-op weakness Hx COPD- exertion dyspnea/weakness Unsteady gait/balance Need for psychosocial assistance Unable to use public transportation David Estrada MD Oct 22, 2017 09:26
--- NOTE | 2017-10-22 09:32 | HHI.PR ---
Subjective Remarks Awake,alert,oriented. No N or V. Ileostomy working. Objective Vital Signs Date Time Temp Pulse Resp B/P (MAP) Pulse Ox O2 Delivery O2 Flow Rate FiO2 10/22/17 08:00 96.9 78 17 127/70 (89) 97 10/22/17 00:00 97.7 84 20 139/70 (93) 95 10/21/17 20:00 96.6 99 20 149/77 (101) 91 10/21/17 16:00 97.7 90 17 137/73 (94) 95 10/21/17 12:00 97.5 83 17 135/71 (92) 95 I/O 10/21/17 10/21/17 10/21/17 10/22/17 10/22/17 10/22/17 07:00 15:00 23:00 07:00 15:00 23:00 Intake Total 510 ml 1870 ml 360 ml Output Total 2030 ml 900 ml 720 ml Balance -1520 ml 970 ml -360 ml Intake Oral 360 ml 720 ml 360 ml IV Total 150 ml 1150 ml Output Urine Total 1850 ml 875 ml 625 ml Stool Total 150 ml 75 ml Drainage Total 30 ml 25 ml 20 ml # Bowel Movements 2 Result Diagram: 10/21/17 0550 10/22/17 0530 Objective Remarks VS-S Abd: flat,soft.Stoma pink,no redness I&Os-OK, stool thick Labs- Creat better yesterday Assessment and Plan Assessment and Plan Stable POD#4. Plan:D/C today on Eliquis per Dr Stringer. F/U with him in 2 weeks. F/U with me Sunday for staple removal. [facility] David Estrada MD Oct 22, 2017 09:31
[2017-10-22] MEDS ORDERED: APIXABAN 2.5 MG TABLET PO ONE (10:00)
--- NOTE | 2017-10-22 12:06 | PD.WCN.NOT ---
Wound Consult Description: Consult for NEW OSTOMY TEACHING of right upper quadrant temporary ileostomy per Dr Estrada Recommendation: Continue to empty pouch and change appliance as needed using cut to fit appliances. Additional Information: Attempted to see patient on for ostomy assessment and to make sure patient had supplies to go home with. Patient was discharged just prior to arrival. Ostomy Type: Ileostomy Surgeon: David Estrada MD Date of Surgery: Oct 18, 2017 Complete: Education materials (Left at bedside after showing the contents to the patient) Jen HuertaMarguerite Oct 22, 2017 12:06
== END 2017-10-22 10:44 | disposition home health service (06) | DRG 330 ==
LOC: HSDI 11:36 → HCPC 19:30 → N07B 10-20 00:40
PROVIDERS: ADMIT Colon & Rectal Surgery; ATTEND Colon & Rectal Surgery
PROC: 0DBP0ZZ Excision of Rectum, Open Approach (ICD-10-PCS; 2017-10-18)
PROC: 0WUF07Z Supplement Abdominal Wall with Autologous Tissue Substitute, Open Approach (ICD-10-PCS; 2017-10-18)
PROC: 0DJD8ZZ Inspection of Lower Intestinal Tract, Via Natural or Artificial Opening Endoscopic (ICD-10-PCS; 2017-10-18)
PROC: 0T788DZ Dilation of Bilateral Ureters with Intraluminal Device, Via Natural or Artificial Opening Endoscopic (ICD-10-PCS; 2017-10-18)
PROC: 0T9B80Z Drainage of Bladder with Drainage Device, Via Natural or Artificial Opening Endoscopic (ICD-10-PCS; 2017-10-18)
PROC: 0DTG0ZZ Resection of Left Large Intestine, Open Approach (ICD-10-PCS; principal; 2017-10-18 13:33)
PROC: 0D1B0Z4 Bypass Ileum to Cutaneous, Open Approach (ICD-10-PCS; 2017-10-18 13:33)
DX: Z43.3 Encounter for attention to colostomy (principal); I45.2 Bifascicular block; I48.2 Chronic atrial fibrillation; N32.89 Other specified disorders of bladder; K66.0 Peritoneal adhesions (postprocedural) (postinfection); K43.5 Parastomal hernia without obstruction or gangrene; N28.9 Disorder of kidney and ureter, unspecified; I25.10 Atherosclerotic heart disease of native coronary artery without angina pectoris; F17.290 Nicotine dependence, other tobacco product, uncomplicated; Z88.5 Allergy status to narcotic agent; Z86.010 Personal history of colon polyps; Z96.653 Presence of artificial knee joint, bilateral
CPT/HCPCS: 80048; 80162; 85025; 86850; 86900; 86901; 88304; 88307; 94150; C9113; J0690; J1100; J1644; J1885; J1940; J2250; J2270; J2370; J2405; J2765; J3010; J3480; J7120

== ENCOUNTER → 2018-01-03 | Outpatient (CLI) | DX: Z01.812 Encounter for preprocedural laboratory examination (principal); K94.19 Other complications of enterostomy; I48.91 Unspecified atrial fibrillation ==

== ENCOUNTER 2018-01-10 11:06 | Inpatient (IN) | payer MEDICARE, BC ==
[~2018-01-10] VITALS: Ht 172.7 cm; Wt 82.5 kg
[~2018-01-10 11:06] MED LIST changes: +ALLO100T PO; +GLYCOPYRROLATE 1 MG/5 ML SYRINGE IV PUSH ONE; +LABETALOL HCL 100 MG/20 ML VIAL IV ONE; +LIDOCAINE HCL 1% PF 5 ML SYRINGE OTHER ONE; +NEOSTIGMINE 5 MG/5 ML SYRINGE IV PUSH ONE; +NEXI40CA PO; +ONDANSETRON HCL 4 MG/2 ML VIAL IV PUSH ONE; +PHENYLEPH/NS 1000 MCG/10 ML SYR IV ONE; +PROPOFOL 200 MG/20 ML AMP IV ONE; +ROCURONIUM INJ 50 MG/5 ML SYRINGE IV PUSH ONE; +ePHEDrine/NS 25 MG/5 ML SYRINGE IV ONE
[2018-01-10] MEDS ORDERED: ceFAZolin INJ 1,000 MG VIAL ONE (13:00)
[2018-01-10] MEDS ORDERED: ALVIMOPAN 12 MG CAPSULE ONE (13:00)
[2018-01-10] MEDS ORDERED: metroNIDAZOLE 500 MG INJ 100 ML IV ONE (13:00)
[2018-01-10] MEDS ORDERED: SODIUM CHLORIDE 0.9% INJ 100 ML ONE (13:01)
[2018-01-10] MEDS ORDERED: methylPREDNISolone SOD SUCC 125 MG/2 ML VIAL ONE (13:25)
[2018-01-10] MEDS ORDERED: SUGAMMADEX SODIUM 200 MG/2 ML VIAL IV PUSH ONE (13:29)
[2018-01-10] MEDS ORDERED: DEXT 5%-NACL 0.9% 1000 ML INJ 1,000 ML IV SCH (14:15)
[2018-01-10] MEDS ORDERED: SODIUM CHLORID 0.9% 500 ML IV PRN (14:15)
[2018-01-10] MEDS ORDERED: POVIDONE IODINE 5% (ANTISEPSIS KIT) 4 APPLICATIONS EACH NARE PRN (14:15)
[2018-01-10] MEDS ORDERED: LACTATED RINGER'S 1000 ML IV PRN (14:15)
[2018-01-10] MEDS ORDERED: CHLORHEXIDINE GLUCONATE 2 % 1 PACK (2 CLOTHS) TOPICAL PRN (14:15)
[2018-01-10] MEDS ORDERED: METOPROLOL TARTRATE 25 MG TAB PO PRN (14:15)
[2018-01-10] MEDS ORDERED: DO NOT ADM ANY ANTICOAGULANT DRUGS PRN (14:59)
[2018-01-10] MEDS ORDERED: MORPHINE SULFATE 4 MG/ML INJ ONE (15:05)
[2018-01-10] MEDS ORDERED: BENZOCAINE 6 MG/MENTHOL 10 MG LOZENGE BUCCAL PRN (15:15)
[2018-01-10] MEDS ORDERED: ACETAMINOPHEN/HYDROcodone 325 MG/5 MG TAB PO PRN ×2 (15:15)
[2018-01-10] MEDS ORDERED: MORPHINE SULFATE 30 MG/30 ML PCA IV SCH (15:15)
[2018-01-10] MEDS ORDERED: KETOROLAC TROMETHAMINE 30 MG/ML (IVP) VIAL IVP PRN (15:15)
[2018-01-10] MEDS ORDERED: Post-op Orders (for Pharmacy) XX ONE (15:15)
[2018-01-10] MEDS ORDERED: ENALAPRILAT 1.25 MG/ML VIAL IV PUSH PRN (15:15)
[2018-01-10] MEDS ORDERED: POTASSIUM CHLOR 20 MEQ PREMIX 100 ML IV PRN (15:15)
[2018-01-10] MEDS ORDERED: POTASSIUM CHLOR 40 MEQ PREMIX 100 ML IV PRN (15:15)
[2018-01-10] MEDS ORDERED: NALOXONE HCL 0.4 MG/ML AMP IV PUSH PRN (15:15)
[2018-01-10] MEDS ORDERED: SODIUM CHLORIDE 0.9% FLUSH 10 ML FLUSH IV FLUSH PRN (15:15)
[2018-01-10 15:38] LABS: BASOPHIL % 0.5 % (0.0-2.0); EOSINOPHIL # 0.2 TH/MM3 (0-0.4); EOSINOPHIL % 1.7 % (0.0-4.0); HEMATOCRIT 46.7 % (39.0-51.0); HEMOGLOBIN 15.2 GM/DL (13.0-17.0); LYMPHOCYTE # 2.2 TH/MM3 (1.0-4.8); MEAN CELL VOLUME 89.3 FL (80.0-100.0); MEAN CORPUSCULAR HEMOGLOBIN 29.1 PG (27.0-34.0); MEAN CORPUSCULAR HGB CONC 32.6 % (32.0-36.0); MEAN PLATELET VOLUME 7.7 FL (7.0-11.0); MONO % 3.8 % (0.0-8.0); MONOCYTE # 0.3 TH/MM3 (0-0.9); PLATELET COUNT 193 TH/MM3 (150-450); RED BLOOD COUNT 5.23 MIL/MM3 (4.50-5.90); RED CELL DISTRIBUTION WIDTH 15.7 % (11.6-17.2); WHITE BLOOD COUNT 8.8 TH/MM3 (4.0-11.0)
[2018-01-10] MEDS: D5-LR + KCL 20 MEQ INJ 1,000 ML IV SCH ×2 (15:45→22:23)
[2018-01-10] MEDS ORDERED: ONDANSETRON ODT 4 MG TAB PO PRN (15:45)
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
[2018-01-10 15:57] LABS: BICARBONATE 30.8 MEQ/L (21.0-32.0); CALCIUM 8.5 MG/DL (8.5-10.1); CREATININE 1.59 MG/DL (0.60-1.30)
[2018-01-10] MEDS: METOCLOPRAMIDE HCL 10 MG/2 ML VIAL IVS SCH (17:52)
[2018-01-10 20:00] VITALS: BP 126/52; PULSE 72; RESP 18; TEMP 97.8; O2SAT 94
[2018-01-10 20:19] VITALS: RESP 18
[2018-01-10] MEDS: ceFAZolin 2 GM PREMIX 50 ML IV SCH (20:22)
[2018-01-10] MEDS: FUROSEMIDE 20 MG/2 ML VIAL IV PUSH SCH (20:23)
[2018-01-10] MEDS: GABAPENTIN 400 MG CAP PO SCH (20:23)
[2018-01-10] MEDS: metroNIDAZOLE 500 MG INJ 100 ML IV SCH (20:23)
[2018-01-10] MEDS: SODIUM CHLORIDE 0.9% FLUSH 10 ML FLUSH IV FLUSH SCH (20:23)
[2018-01-10] MEDS ORDERED: ZOLPIDEM TARTRATE 5 MG TAB PO PRN (21:00)
[2018-01-10] MEDS ORDERED: RYTHMOL PO SCH (21:00)
[2018-01-10] MEDS: PCA - TOTAL MG MORPHINE DELIVERED PER SHIFT SCH (22:00)
[2018-01-11] VITALS (9 sets, daily range): BP systolic 111–150; BP diastolic 65–73; PULSE 59–73; RESP 18–20; TEMP 97.1–97.6; O2SAT 93–100
[2018-01-11] MEDS: METOCLOPRAMIDE HCL 10 MG/2 ML VIAL IVS SCH ×4 (00:59→17:59)
[2018-01-11] MEDS: ceFAZolin 2 GM PREMIX 50 ML IV SCH ×2 (04:31→15:30)
[2018-01-11] MEDS: D5-LR + KCL 20 MEQ INJ 1,000 ML IV SCH ×3 (04:33→22:42)
[2018-01-11] MEDS: metroNIDAZOLE 500 MG INJ 100 ML IV SCH ×2 (04:33→15:32)
[2018-01-11] MEDS: PCA - TOTAL MG MORPHINE DELIVERED PER SHIFT SCH ×2 (04:34→14:00)
[2018-01-11 07:31] LABS: AUTOMATED NEUTROPHIL # 11.7 TH/MM3 (1.8-7.7); BASOPHIL % 0.1 % (0.0-2.0); HEMATOCRIT 46.7 % (39.0-51.0); HEMOGLOBIN 15.4 GM/DL (13.0-17.0); LYMPH % 7.3 % (9.0-44.0); MEAN CORPUSCULAR HEMOGLOBIN 29.7 PG (27.0-34.0); MEAN PLATELET VOLUME 8.4 FL (7.0-11.0); MONO % 2.8 % (0.0-8.0); MONOCYTE # 0.4 TH/MM3 (0-0.9); NEUT % 89.8 % (16.0-70.0); PLATELET COUNT 196 TH/MM3 (150-450); RED BLOOD COUNT 5.18 MIL/MM3 (4.50-5.90); RED CELL DISTRIBUTION WIDTH 15.8 % (11.6-17.2); WHITE BLOOD COUNT 13.1 TH/MM3 (4.0-11.0)
[2018-01-11 07:59] LABS: BICARBONATE 30.7 MEQ/L (21.0-32.0); CALCIUM 8.6 MG/DL (8.5-10.1); CREATININE 1.92 MG/DL (0.60-1.30)
[2018-01-11] MEDS: DIGOXIN 0.125 MG TAB PO SCH (09:00)
[2018-01-11] MEDS: SODIUM CHLORIDE 0.9% FLUSH 10 ML FLUSH IV FLUSH SCH ×2 (09:00→21:00)
[2018-01-11] MEDS: ASPIRIN EC 325 MG TABEC PO SCH (09:00)
[2018-01-11] MEDS: GABAPENTIN 400 MG CAP PO SCH ×2 (09:00→22:38)
[2018-01-11] MEDS: ALVIMOPAN 12 MG CAPSULE PO SCH ×2 (10:16→22:38)
[2018-01-11] MEDS: PANTOPRAZOLE SODIUM 40 MG VIAL IVP SCH (10:17)
[2018-01-11] MEDS: FUROSEMIDE 20 MG/2 ML VIAL IV PUSH SCH ×2 (10:17→22:42)
--- NOTE | 2018-01-11 16:56 | HHI.PR ---
Subjective Remarks Pt has no pain. No N or V. Small BMs. Not using MANAGER INSTRUMENTATION Objective Vital Signs Date Time Temp Pulse Resp B/P (MAP) Pulse Ox O2 Delivery O2 Flow Rate FiO2 01/11/18 16:00 97.2 59 20 134/73 (93) 95 01/11/18 15:54 98 21 01/11/18 12:00 97.1 65 20 150/70 (96) 98 01/11/18 08:53 100 01/11/18 08:00 97.1 64 18 138/65 (89) 94 01/11/18 05:30 21 01/11/18 05:08 18 01/11/18 04:34 18 01/11/18 04:00 97.5 73 18 135/71 (92) 96 01/11/18 00:00 97.6 73 18 111/66 (81) 93 01/10/18 22:00 18 01/10/18 20:19 18 01/10/18 20:00 97.0 78 22 117/58 (77) 96 Nasal Cannula 2 01/10/18 20:00 97.8 72 18 126/52 (76) 94 01/10/18 19:00 76 12 119/58 (78) 96 Nasal Cannula 2 01/10/18 18:00 69 12 97/46 (63) 95 Nasal Cannula 2 01/10/18 17:00 97.7 68 16 143/69 (93) 94 Nasal Cannula 2 I/O 01/10/18 01/10/18 01/10/18 01/11/18 01/11/18 01/11/18 07:00 15:00 23:00 07:00 15:00 23:00 Intake Total 900 ml 879 ml 902 ml Output Total 5 ml 100 ml Balance 895 ml 879 ml 802 ml Intake IV Total 879 ml 902 ml Other 900 ml Output Urine Total 100 ml Estimated Blood Loss 5 ml Result Diagram: 01/11/18 0600 01/11/18 0600 Objective Remarks VS-S Abd: flat,dressing dry. I&Os- not recording u/o. Labs- OK Assessment and Plan Assessment and Plan Stable POD #1 Plan. Decrease IVs,Remove dressing in AM, D/C MANAGER INSTRUMENTATION. D/C tomorrow. Office f/u 2 weeks. David Estrada MD January 11, 2018 16:56
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
[2018-01-12] VITALS: BP 155/81; PULSE 60; RESP 18; TEMP 97.2; O2SAT 95
[2018-01-12] MEDS: METOCLOPRAMIDE HCL 10 MG/2 ML VIAL IVS SCH ×2 (05:06)
[2018-01-12] MEDS: D5-LR + KCL 20 MEQ INJ 1,000 ML IV SCH (05:34)
[2018-01-12 07:27] LABS: AUTOMATED NEUTROPHIL # 10.6 TH/MM3 (1.8-7.7); BASOPHIL % 0.1 % (0.0-2.0); EOSINOPHIL % 0.3 % (0.0-4.0); HEMOGLOBIN 14.3 GM/DL (13.0-17.0); LYMPH % 10.9 % (9.0-44.0); LYMPHOCYTE # 1.4 TH/MM3 (1.0-4.8); MEAN CELL VOLUME 88.8 FL (80.0-100.0); MEAN CORPUSCULAR HEMOGLOBIN 29.6 PG (27.0-34.0); MEAN CORPUSCULAR HGB CONC 33.3 % (32.0-36.0); MEAN PLATELET VOLUME 8.2 FL (7.0-11.0); MONO % 6.1 % (0.0-8.0); MONOCYTE # 0.8 TH/MM3 (0-0.9); NEUT % 82.6 % (16.0-70.0); PLATELET COUNT 184 TH/MM3 (150-450); RED BLOOD COUNT 4.84 MIL/MM3 (4.50-5.90); RED CELL DISTRIBUTION WIDTH 15.3 % (11.6-17.2); WHITE BLOOD COUNT 12.9 TH/MM3 (4.0-11.0)
[2018-01-12 07:53] LABS: BICARBONATE 36.5 MEQ/L (21.0-32.0); CALCIUM 8.5 MG/DL (8.5-10.1); CREATININE 1.35 MG/DL (0.60-1.30)
[2018-01-12 08:00] VITALS: BP 156/80; PULSE 66; RESP 17; TEMP 97.3; O2SAT 97
[2018-01-12] MEDS: SODIUM CHLORIDE 0.9% FLUSH 10 ML FLUSH IV FLUSH SCH (09:00)
[2018-01-12] MEDS: DIGOXIN 0.125 MG TAB PO SCH (09:00)
[2018-01-12] MEDS: GABAPENTIN 400 MG CAP PO SCH (09:05)
[2018-01-12] MEDS: ALVIMOPAN 12 MG CAPSULE PO SCH (09:05)
[2018-01-12] MEDS: ASPIRIN EC 325 MG TABEC PO SCH (09:05)
[2018-01-12] MEDS: FUROSEMIDE 20 MG/2 ML VIAL IV PUSH SCH (09:05)
[2018-01-12] MEDS: PANTOPRAZOLE SODIUM 40 MG VIAL IVP SCH (09:06)
== END 2018-01-12 11:07 | disposition home or self-care (01) | DRG 331 ==
LOC: HSDI 11:06 → N07B 20:07
PROVIDERS: ADMIT Colon & Rectal Surgery; ATTEND Colon & Rectal Surgery
PROC: 0WQF0ZZ Repair Abdominal Wall, Open Approach (ICD-10-PCS; 2018-01-10)
PROC: 0DBB0ZZ Excision of Ileum, Open Approach (ICD-10-PCS; principal; 2018-01-10 13:35)
DX: Z43.2 Encounter for attention to ileostomy (principal); I48.91 Unspecified atrial fibrillation; J44.9 Chronic obstructive pulmonary disease, unspecified; K43.5 Parastomal hernia without obstruction or gangrene; N18.3 Chronic kidney disease, stage 3 (moderate); F17.200 Nicotine dependence, unspecified, uncomplicated; M54.9 Dorsalgia, unspecified
CPT/HCPCS: 80048; 85025; 86850; 86900; 86901; 88305; 94150; C9113; J0690; J1940; J2270; J2370; J2405; J2710; J2765; J2930; J3010; J3480